=== PATIENT | female | born 1950 | race Caucasian/White ===

== ENCOUNTER 2016-12-19 08:16 | Inpatient (IN) | payer MEDICARE, OTHER ==
--- NOTE | 2016-12-11 20:01 | HP ---
HISTORY AND PHYSICAL: DATE OF ADMISSION/SURGERY: 12/19/16 DATE OF OFFICE VISIT: 12/11/16 PROVIDER: Dr. Alessia Sutton. (dictated by Dylan Leyva NP) CHIEF COMPLAINT: Preop for right total knee arthroplasty. HISTORY OF PRESENT ILLNESS: Ms. Henriquez is a 66-year-old female who presents today for her H and P of the right knee. She states that the pain is a 3/10 right now, but the pain is constant throughout the day. She has had her left knee replaced and would like to pursue treatment of the right knee now. She states as the day goes on, it wears her down and it is starting to affect her quality of life. PAST MEDICAL HISTORY: 1. Primary osteoarthritis, bilateral knees. 2. Obstructive sleep apnea. 3. Hypertension. 4. Hypothyroidism. 5. Depression. 6. Eczema. 7. Psoriasis. 8. Asthma. 9. Rosacea. 10. Retinal pucker. PAST SURGICAL HISTORY: 1. Bilateral cataracts. 2. LASIK bilateral eyes. 3. Carpal tunnel and ulnar nerve. 4. Trigger finger. 5. Bony cyst removal. 6. Tonsillectomy. 7. Cardiac catheterization. MEDICATIONS: 1. Acetaminophen 500 mg 1 three times a day as needed for pain. 2. Naproxen 220 mg 1 to 2 twice a day as needed for pain. 3. Proventil HFA inhaler 90 mcg 2 puffs every 4 hours. 4. Mucinex 600 mg 1 or 2 every 12 hours. 5. Cutemol emollient skin cream twice a day as needed. 6. Tar shampoo 2 to 3 times a week. 7. Olux Foam 0.05% apply to the scalp 1 or 2 times a day. 8. Hydrocortisone valerate cream MCFP 0.2% 2 times a day. 9. Brimonidine tartrate ophthalmic solution 0.2%. 10. Bupropion hydrochloride 150 mg. 11. Hyzaar 100/25. 12. Felodipine extended release 5 mg. 13. Levothyroxine 100 mcg. 14. Clindamycin 300 mg. 15. Pulmicort 200 mcg. 16. Calcium plus vitamin D 750/500. 17. Vitamin D 1999. 18. Nature Made Triple Boyd 3-6-9. 19. Nature Made Multi for Her with iron and calcium. 20. Glucosamine and chondroitin. ALLERGIES: PENICILLIN, ADHESIVES, and THIOMERSAL. FAMILY HISTORY: The patient has no family history to speak of. SOCIAL HISTORY: The patient denies history of smoking or illicit drug use. The patient admits to drinking occasionally. REVIEW OF SYSTEMS: General: The patient denies any fevers, chills, or night sweats. No known anesthesia problems. HEENT: The patient denies any lightheadedness, headaches, or syncopal episodes. Cardio: The patient denies any chest pain, heart palpitations, or edema. Pulmonary: The patient denies any shortness of breath with exertion, chronic cough, or COPD. GI: The patient denies any nausea, vomiting, diarrhea, or constipation. : The patient denies any nocturia, urinary frequency, or urinary urgency. MSK: The patient admits to right knee pain. The patient denies any left knee pain or chronic intermittent back pain. Neuro: The patient denies any paresthesias, numbness, seizure, stroke, or epilepsy. She admits to depression . Integument: The patient denies abrasions, lesions, rashes, lumps, or open sores. Endocrine: The patient denies diabetes or thyroid issue. Hematology: The patient denies any easy bruising, anemia, excessive bleeding, or DVT. PHYSICAL EXAMINATION GENERAL: The patient is awake, alert, and oriented, and appears in no acute distress with an appropriate mood and affect. HEENT: Normocephalic, atraumatic. Hearing and vision are grossly intact. PULMONARY: Lungs are clear to auscultation bilaterally with no wheezes, rales, or rhonchi. CARDIO: Regular rate and rhythm. Normal S1 and S2. No appreciable S3, S4. No murmurs, rubs, or gallops. MUSCULOSKELETAL: Right lower extremity, the patient is able to extend to 0 and flex to 110. The patient has negative Apley's, negative varus and valgus stress test. Negative Austin's. The patient has 5/5 dorsiflexion and plantar flexion strength. The patient has sensation to light touch grossly intact distally and the patient has 2+ dorsalis pedis and posterior tibial. IMPRESSION: Preop for right total knee arthroplasty. PLAN: The patient is to return in 10 to 14 days postoperatively for suture removal and followup. A prescription for Percocet 5/325 has been sent to her pharmacy for use of postoperative pain management. A script for Coumadin has been sent for postop DVT prophylaxis and Colace for postop constipation. The risks and benefits of the surgery were discussed with the patient today and the patient was amenable to these and signed the consent. KATARINA HITCHCOCK [id number]/[facility] #: [id number] CELESTINE
[~2016-12-19 08:16] MED LIST: Acetaminophen IV 1GM/100ML * 100 ML IVPB ONE; Buffered Lidocaine 1% SYRIN* 3 ML/SYR SYRINGE INTRADERM ONE; Famotidine IV* 10 MG/ML 2 ML (20 mg) IV ONE; Gabapentin CAP(*) 300 MG PO ONE; Levalbuterol 0.63MG/3ML NEB INH ONE; Metoclopramide TAB* 10 MG PO ONE; celeCOXIB CAP* 200 MG PO ONE
[2016-12-19] MEDS ORDERED: Famotidine IV* 10 MG/ML 2 ML (20 mg) ONE (08:43)
[2016-12-19] MEDS ORDERED: celeCOXIB CAP* 100 MG ONE (08:43)
[2016-12-19] MEDS ORDERED: Metoclopramide TAB* 10 MG ONE (08:43)
[2016-12-19] MEDS ORDERED: Gabapentin CAP(*) 300 MG ONE (08:43)
[2016-12-19] MEDS ORDERED: Levalbuterol 1.25MG/0.5ML NEB ONE (08:44)
[2016-12-19] MEDS ORDERED: Buffered Lidocaine 1% SYRIN* 3 ML/SYR SYRINGE ONE (08:44)
[2016-12-19] MEDS ORDERED: Clindamycin 900 MG IVPREMIX(* 900 MG/50 ML SDV IV ONE (08:44)
[2016-12-19] MEDS ORDERED: Acetaminophen IV 1GM/100ML * 100 ML ONE (08:48)
[2016-12-19] MEDS ORDERED: Dexamethasone IV* 4 MG/ML 1 ML (4 MG) ONE (09:33)
[2016-12-19] MEDS ORDERED: Propofol* 10 MG/ML 20 ML BTL IV PUSH ONE (09:33)
[2016-12-19] MEDS ORDERED: Morphine PF AMP (0.5MG/ML)* 5 MG/10 ML AMP ONE (09:33)
[2016-12-19] MEDS ORDERED: KETAMINE HCL* 50 MG/ML 10 ML VIAL ONE (09:33)
[2016-12-19] MEDS ORDERED: Midazolam* 1 MG/ML 5 ML VIAL (5 MG) ONE (09:33)
[2016-12-19] MEDS ORDERED: Ondansetron INJ* 2 MG/ML VIAL ONE (09:33)
[2016-12-19] MEDS ORDERED: Lidocaine 2% MPF* 2 ML VIAL ONE (09:33)
[2016-12-19] MEDS ORDERED: fentaNYL* 50 MCG/ML 2 ML VIAL (100 MCG VIAL) ONE (09:33)
[2016-12-19] MEDS ORDERED: Bupivacaine 0.5% SDV PF* 30 ML VIAL ONE (10:29)
[2016-12-19] MEDS ORDERED: EPHEDrine (Pressors)* 50 MG/ML VIAL ONE (11:27)
[2016-12-19] MEDS ORDERED: Propofol* 500 MG/50 ML BTL ONE (11:34)
[2016-12-19] MEDS ORDERED: Ondansetron INJ* 2 MG/ML VIAL IV PRN ×3 (12:48→14:04)
[2016-12-19] MEDS ORDERED: fentaNYL* 50 MCG/ML 2 ML VIAL (100 MCG VIAL) IV PRN (12:48)
[2016-12-19] MEDS ORDERED: Naloxone* 0.4 MG/ML 1 ML VIAL IV PRN (12:49)
[2016-12-19] MEDS ORDERED: diPHENhydraMINE IV* 50 MG/ML 1 ml VIAL (BENADRYL) IV PRN ×2 (12:49→14:04)
[2016-12-19] MEDS ORDERED: oxyCODONE/Acetamin 5/325 MG* TAB PO PRN ×3 (12:49→14:04)
[2016-12-19] MEDS ORDERED: EPHEDrine (Pressors)* 50 MG/ML VIAL IV PUSH PRN (12:53)
[2016-12-19] MEDS ORDERED: Lactated Ringers 500 ml BAG* 500 ML IV PRN (12:53)
[2016-12-19] MEDS ORDERED: Ropivacaine* 300 MG in NS 0.9% 250 ML* 240 ML EPIDURAL SCH (13:00)
[2016-12-19] MEDS ORDERED: oxyCODONE TAB* 5 MG TAB PO PRN (14:04)
[2016-12-19] MEDS ORDERED: Morphine INJ* 10 MG/ML 1 ML SYRINGE IV PRN (14:04)
[2016-12-19] MEDS ORDERED: Acetaminophen TAB* 325 MG PO PRN (14:04)
[2016-12-19] MEDS ORDERED: Polyethylene Glycol 3350* 17 GM PACKET PO PRN (14:04)
[2016-12-19] MEDS ORDERED: Ondansetron TAB* 4 MG PO PRN (14:04)
[2016-12-19] MEDS ORDERED: LACTULOSE* 30 ML UDC PO PRN (14:04)
[2016-12-19] MEDS ORDERED: Bisacodyl SUPP* 10 MG SUPP PR PRN (14:04)
[2016-12-19] MEDS ORDERED: Albuterol HFA INHALER* 8 gm MDI INH PRN (14:09)
--- NOTE | 2016-12-19 16:07 | RAD ---
Indication: Postop RIGHT total knee replacement. Comparison: July 01, 2016 radiographs. Technique: Portable AP and cross table lateral views RIGHT knee. Report: Status post total knee replacement. Anterior surgical drain in place in the suprapatellar recess. Post-op fluid and gas is seen in the joint space and anterior subcutaneous tissues. Alignment is anatomic. No periprosthetic fracture evident. Multiple chronic appearing posterior loose bodies are likely within popliteal cyst and popliteus tendon sheath. IMPRESSION: Normal post-op appearance following total knee replacement.
[2016-12-19] MEDS ORDERED: Warfarin TAB(*) 6 MG PO ONE (17:00)
[2016-12-19] MEDS: Clindamycin 600 MG IVPREMIX(* 600 MG/50 ML SDV IV SCH (19:33)
[2016-12-19] MEDS: buPROPion SR TAB.SR* 150 MG PO SCH (21:22)
[2016-12-19] MEDS: Magnesium Hydroxide LIQ* 30 ML UDC PO SCH (21:22)
[2016-12-19] MEDS: Docusate CAP* 100 MG PO SCH (21:22)
[2016-12-19] MEDS: Mometasone 220 MCG MDI INH SCH (21:25)
--- NOTE | 2016-12-19 23:35 | OP ---
DATE OF OPERATION: 12/19/16 - ROOM #348 DATE OF : 46 ATTENDING SURGEON: Alessia Sutton MD BUCKLE WIRE INSERTER: KATARINA Barone ANESTHESIOLOGIST: Dr. Betts. ANESTHESIA: Spinal. PRE-OP DIAGNOSIS: Severe end-stage degeneration of the right knee joint. POST-OP DIAGNOSIS: Severe end-stage degeneration of the right knee joint. OPERATIVE PROCEDURE: Right total knee arthroplasty. TOURNIQUET TIME: 53 minutes. EBL: 200 cc. COMPLICATIONS: None. SPECIMEN: Bone and cartilage from the right knee joint sent to pathology. HARDWARE: This is a [employer] total knee hardware cemented with 2 packages of Simplex bone cement. For the femur, a size 5 right narrow Oxinium femoral component. For the tibia, a size 4 tibial base plate, right side. For the patella, a 32 mm, 7.5 thickness, 3-peg all-poly patella and for the insert, a 9-mm posterior stabilized articular insert. BRIEF HISTORY: Ms. Henriquez is a 66-year-old female with years of increasingly severe right knee pain. She failed conservative treatment with anti- inflammatories, pain medication, intra-articular injection, physical therapy, and brace wear. Radiographs confirmed end-stage [id number] contact in the medial compartment and severe degenerative changes. The patient elected to have right total knee arthroplasty due to continued pain and decreased quality of life. Informed consent was obtained from the patient. She understood the risks of surgery included, but were not limited to bleeding, infection, damage to nearby structures, continued pain, need for further surgery, intraoperative fracture, nerve palsy, hardware failure or loosening, stroke, heart attack, blood clot, and . She wished to proceed. INTRAOPERATIVE FINDINGS: Intraoperatively, the patient was noted to have full thickness degeneration of the cartilage in the knee joint and patellofemoral compartments. 10 degrees varus deformity preoperatively. She was noted to have significant osteopenia. DESCRIPTION OF PROCEDURE: Ms. Henriquez was identified in the preanesthesia unit. Her right lower extremity was marked as the correct operative side. Informed consent was signed and placed in the chart. The patient was taken to the operating room and placed under spinal anesthesia. A Michel catheter was placed. Tourniquet was placed on the right side. Right lower extremity was prepped and draped in the usual sterile fashion. Preop time-out was made to correctly identify the patient's side and site. Appropriate perioperative antibiotics were given within 1 hour of incision. Tourniquet was inflated until a tourniquet time for this procedure was 53 minutes. A 12-cm midline incision was made with a 10 blade and carried down to the extensor mechanism. A new 10 blade was used to make a standard medial parapatellar arthrotomy. The patella was subluxed laterally. Electrocautery was used to subperiosteally elevate the soft tissue off of the superomedial tibia to the mid sagittal plane. The knee was flexed up. The anterior horn of the lateral meniscus and ACL were sharply released. Drill was used to enter the distal femur. Intramedullary distal femoral cutting guide was pinned into proper position. An oscillating saw was used to make the distal femoral bone cuts. External rotation guide was pinned on to the distal femur and the femur was sized to a size 5. Size 5 multi-cutting jig was pinned onto the distal femur and the oscillating saw was used to make the appropriate 4 chamfer cuts. The multi-cutting jig was removed. All bony fragments were carefully removed. The PCL was completely released. Tibia was subluxed anteriorly. Extramedullary tibial cutting guide was pinned on the proximal tibia. The oscillating saw was used to make the appropriate proximal tibial cut perpendicular to the mechanical axis of the tibia. The bone was carefully removed. Several large loose bodies were removed from the suprapatellar pouch and posterior capsule at this point. The knee was brought out into full extension. Spacer block had good fit with full extension. There was medial and lateral ligamentous balancing. Flexion and extension gaps were well balanced. The knee was then flexed up. Lamina digital imaging technician was placed both medially and laterally. Electrocautery was used to remove any remaining meniscus. A curved osteotome and curette was used to remove any posterior osteophytes from the posterior femoral condyle. Size 5 right narrow femoral trial was impacted onto the distal femur. This had excellent fit and stability. The box for the posterior stabilized implant was prepared using a reamer and box cut osteotome. A trial size 4 tibial tray and 9 -mm insert trial were chosen. These were put into position and the knee was taken through range of motion. Knee had full extension and 130 degrees of flexion. There was satisfactory patellofemoral tracking. The patella was everted. Patellar thickness was 22 mm at the greatest point. 7 -mm of patellar bone and cartilage was carefully removed with an oscillating saw. The patella was sized to a size 32. A 7.5 thickness was chosen to match the amount of bone removed. A 32 patellar trial was chosen and placed after the 3 peg holes were drilled through the size 32 guide. The knee was taken through range of motion and patellofemoral tracking was satisfactory. All trials were carefully removed. The tibia was subluxed anteriorly and sized to a size 4. Proximal tibia was prepared using a keel punch. All bony cut surfaces were copiously irrigated with sterile saline and dried. Final implants were cemented into placed starting with tibia followed by the femur and last the patella. A 9-mm insert trial was chosen and locked on the tibial tray while the knee was brought out into full extension and the cement was allowed to fully cure. Tourniquet was then turned down at 53 minutes. Once the cement was fully cured, the insert trial was removed. Capsule was checked for any bleeding or excess cement. A 9-mm posterior stabilized insert trial was chosen as the final implant. This was opened and locked into position on the tibial tray. Stability of the insert on the tibial tray was checked and rechecked and noted to be stable. Final range of motion was full extension to 130 degrees of flexion with good patellofemoral tracking. The knee was copiously irrigated with sterile saline. The extensor mechanism was closed using interrupted #1 Vicryls over a median Hemovac drain. The rest of the incision was closed in a layered fashion using 0 and 2-0 Vicryls. Skin was closed using running 3-0 nylon suture. Sterile Xeroform, 4x4s, and Webril were used to cover the incision. Gregory wrap and cold pack were placed over this. The patient's anesthesia was reversed without difficulty. She was taken to the PACU in stable condition. Intended weightbearing will be weightbearing as tolerated. Intended DVT prophylaxis will be Coumadin with a Lovenox bridge. [id number]/[facility] #: [id number] CELESTINE
[2016-12-20] MEDS: Clindamycin 600 MG IVPREMIX(* 600 MG/50 ML SDV IV SCH ×2 (03:24→12:41)
[2016-12-20 07:13] LABS: Hematocrit 30 % (35-47)
[2016-12-20 07:23] LABS: BUN/Creatinine Ratio 20.3 (8-20); EGFR African American 108.8 (>60); EGFR Non-African American 84.6 (>60); Potassium 4.9 mmol/L (3.5-5.0)
--- NOTE | 2016-12-20 07:51 | PN ---
Progress Note - Progress Note SOAP: Subjective: Pt. reports pain is controlled. Objective: RLE - drain removed, tip intact with 250 cc ss drainage. distally +df/pf, full sens lt, 2+ dp pulse. Laboratory Results - last 24 hr 12/20/16 12/20/16 12/20/16 06:54 06:54 06:54 Hgb 10.0 L Hct 30 L INR (Anticoag Therapy) 0.97 Sodium 138 Potassium 4.9 Chloride 102 Carbon Dioxide 33 H Anion Gap 3 BUN 14 Creatinine 0.69 Est GFR ( Amer) 108.8 Est GFR (Non-Af Amer) 84.6 BUN/Creatinine Ratio 20.3 H Glucose 108 H Calcium 9.0 Vital Signs: Temp Pulse Resp BP Pulse Ox 97.6 F 67 16 106/50 97 12/20/16 03:18 12/20/16 03:18 12/20/16 04:58 12/20/16 03:50 12/20/16 03:32 Assessment: 66 yo F pod 1 s/p RTKA Plan: wbat - pt/ot 8 mg coumadin, lovenox bridge xrays satisfactory 8mg coumadin tonight, lovenox bridge.
[2016-12-20] MEDS: Vitamin THERAPEUTIC TAB PO SCH (09:36)
[2016-12-20] MEDS: Losartan TAB* 25 MG PO SCH (09:36)
[2016-12-20] MEDS: oxyCODONE/Acetamin 5/325 MG* TAB PO PRN ×4 (09:37→21:31)
[2016-12-20] MEDS: amLODIPine TAB* 5 MG PO SCH (09:37)
[2016-12-20] MEDS: Magnesium Hydroxide LIQ* 30 ML UDC PO SCH ×2 (09:37→21:31)
[2016-12-20] MEDS: buPROPion SR TAB.SR* 150 MG PO SCH ×2 (09:37→21:30)
[2016-12-20] MEDS: Levothyroxine TAB* 100 MCG TAB PO SCH (09:37)
[2016-12-20] MEDS: Docusate CAP* 100 MG PO SCH ×2 (09:47→21:31)
[2016-12-20] MEDS: Hydrochlorothiazide TAB* 25 MG PO SCH (09:47)
[2016-12-20] MEDS: Enoxaparin(*) 30 MG/0.3 ML SYR SUBCUT SCH (15:50)
[2016-12-20] MEDS ORDERED: Warfarin TAB(*) 4 MG PO ONE (17:00)
[2016-12-20] MEDS: Mometasone 220 MCG MDI INH SCH (17:56)
[2016-12-21] MEDS: oxyCODONE/Acetamin 5/325 MG* TAB PO PRN ×5 (01:35→21:42)
[2016-12-21 07:09] LABS: Hematocrit 30 % (35-47); Hemoglobin 9.9 g/dl (12.0-16.0)
[2016-12-21] MEDS: Levothyroxine TAB* 100 MCG TAB PO SCH (08:25)
[2016-12-21] MEDS: Hydrochlorothiazide TAB* 25 MG PO SCH (08:25)
[2016-12-21] MEDS: amLODIPine TAB* 5 MG PO SCH (08:25)
[2016-12-21] MEDS: buPROPion SR TAB.SR* 150 MG PO SCH ×2 (08:25→19:59)
[2016-12-21] MEDS: Losartan TAB* 25 MG PO SCH (08:25)
[2016-12-21] MEDS: Vitamin THERAPEUTIC TAB PO SCH (08:25)
[2016-12-21] MEDS: Docusate CAP* 100 MG PO SCH ×2 (08:25→19:27)
[2016-12-21] MEDS: Magnesium Hydroxide LIQ* 30 ML UDC PO SCH ×2 (08:44→19:27)
--- NOTE | 2016-12-21 09:31 | PN ---
Progress Note - Progress Note SOAP: Subjective: Pt. c/o being very tired today, does not feel ready to go home. Pain is controlled. Objective: RLE - dressing changed, inc c/d/i. distally nvi. min swelling. Vital Signs: Temp Pulse Resp BP Pulse Ox 99.0 F 89 18 148/75 95 12/21/16 07:35 12/21/16 08:21 12/21/16 08:23 12/21/16 07:35 12/21/16 08:21 Laboratory Results - last 24 hr 12/21/16 12/21/16 06:43 06:43 Hgb 9.9 L Hct 30 L INR (Anticoag Therapy) 1.17 H Assessment: 66 yo F pod 2 s/p RTKA Plan: doing well with pt cont pt/ot - wbat rle 8 mg coumadin tonight, with lovenox bridge bowel regimen. plan d/c to home tomorrow.
[2016-12-21] MEDS: Enoxaparin(*) 30 MG/0.3 ML SYR SUBCUT SCH (15:31)
[2016-12-21] MEDS ORDERED: Warfarin TAB(*) 6 MG PO SCH (17:00)
[2016-12-21] MEDS ORDERED: Warfarin TAB(*) 4 MG PO SCH (17:00)
[2016-12-21] MEDS ORDERED: Mometasone 220 MCG MDI INH SCH (18:00)
[2016-12-22] MEDS: oxyCODONE/Acetamin 5/325 MG* TAB PO PRN ×3 (02:58→13:42)
[2016-12-22 06:44] LABS: Hematocrit 31 % (35-47); Hemoglobin 10.3 g/dl (12.0-16.0)
[2016-12-22] MEDS: buPROPion SR TAB.SR* 150 MG PO SCH (09:43)
[2016-12-22] MEDS: Levothyroxine TAB* 100 MCG TAB PO SCH (09:43)
[2016-12-22] MEDS: Hydrochlorothiazide TAB* 25 MG PO SCH (09:43)
[2016-12-22] MEDS: Docusate CAP* 100 MG PO SCH (09:43)
[2016-12-22] MEDS: amLODIPine TAB* 5 MG PO SCH (09:43)
[2016-12-22] MEDS: Vitamin THERAPEUTIC TAB PO SCH (09:43)
[2016-12-22] MEDS: Losartan TAB* 25 MG PO SCH (09:44)
[2016-12-22] MEDS: Magnesium Hydroxide LIQ* 30 ML UDC PO SCH (09:44)
--- NOTE | 2016-12-22 10:19 | PN ---
Progress Note - Progress Note SOAP: Subjective: Pt states she is doing well. Her pain is controlled. She is doing well with PT and is ready to go home. She has had a BM. She denies CP,SOB, fever or chills. Objective: PE- 66 y/o WDWN F in NAD sitting comfortably in chair RLE- dressing changed, incision c/d/i w/o evidence of infection, calf soft nontender, +PF/DF of ankle, NVI Vital Signs Temp Pulse Resp BP Pulse Ox 99.0 F 76 18 146/68 93 12/22/16 07:34 12/22/16 07:34 12/22/16 09:25 12/22/16 07:34 12/22/16 07:49 Laboratory Results - last 24 hr 12/22/16 12/22/16 06:29 06:29 Hgb 10.3 L Hct 31 L INR (Anticoag Therapy) 1.52 H Assessment: POD 3 S/P Right TKA Plan: DC to home with VNS today WBAT RLE- cont PT Cont coumadin for DVT prophyaxis Cont percocet and colace F/U in office in 10-14 days
[2016-12-22 12:09] VITALS: BP 137/62
[2016-12-22] MEDS: Enoxaparin(*) 30 MG/0.3 ML SYR SUBCUT SCH (14:32)
--- NOTE | 2016-12-23 00:22 | DS ---
DISCHARGE SUMMARY: DATE OF ADMISSION: 12/19/16 DATE OF DISCHARGE: 12/22/16 PROVIDER: Alessia Sutton MD. ADMITTING DIAGNOSIS: Severe right knee osteoarthritis. PROCEDURE: Right total knee arthroplasty. SECONDARY DIAGNOSES: 1. Primary osteoarthritis, bilateral knees. 2. Obstructive sleep apnea. 3. Hypertension. 4. Hypothyroidism. 5. Depression. 6. Eczema. 7. Psoriasis. 8. Asthma. 9. Rosacea. 10. Retinal pucker. CONSULTATIONS: Physical Therapy and Occupational Therapy. HISTORY OF PRESENT ILLNESS: Ms. Henriquez is a 66-year-old female who presents to the clinic for ongoing right knee pain due to severe endstage osteoarthritis. She has failed conservative measures and therefore agreed to undergo a right total knee arthroplasty with Dr. Sutton on 12/19/16. HOSPITAL COURSE: Ms. Henriquez was admitted to [facility] on . She underwent a right total knee arthroplasty. Postoperatively, she recovered on the short stay surgical unit. On postop day 1, her Michel was removed and she was able to urinate on her own. She was advanced to a regular diet without difficulty. Her pain was controlled with p.o. Percocet and she was restarted on her home medications. Her labs and vitals remained stable. She was able to bear weight as tolerated on the right lower extremity. She advanced appropriately with physical therapy and occupational therapy. Her DVT prophylaxis was managed with Lovenox and Coumadin until she reached a therapeutic INR. On postop day 3, she was orthopedically and medically stable for discharge to home with VNS services. PHYSICAL EXAMINATION: General: A 66-year-old well-developed, well-nourished female in no acute distress. Alert and oriented x3. Right lower Extremity: Surgical incision is healing well. The sutures are intact. No erythema, drainage or signs of infection. Dry sterile dressing was applied. Active ankle dorsiflexion and plantar flexion, +2 dorsalis pedis pulse. Sensation to light touch intact. LABORATORY DATA: On the day of discharge, hemoglobin 10.3, hematocrit 31, INR 1.52. DISCHARGE CONDITION: Stable. DISCHARGE MEDICATIONS: New medications on discharge to include: 1. Colace 100 mg capsules up to 3 times a day as needed for constipation. 2. Warfarin 2 mg tabs by mouth daily as directed. 3. Percocet 5/325 mg 1 to 2 tabs every 4 to 6 hours as needed for pain. Home medications continued on discharge to include: 1. Vitamin D 1000 unit capsule, 1 capsule by mouth daily. 2. Mucinex 600 mg 1 by mouth every 4 hours as needed. 3. Multivitamin Women's 50+ one tab by mouth daily. 4. MegaRed, Gardiner-3, krill oil 500 mg 1 tab by mouth daily. 5. Calcium plus vitamin D plus vitamin K 750-500-40 mg 1 tab by mouth twice a day. 6. Pulmicort Flexhaler 180 mcg/act 2 puffs inhaled twice a day. 7. Albuterol HFA inhaler 2 puffs inhaled every 4 hours as needed. 8. Losartan/HCTZ 100/25 mg 1 by mouth daily. 9. Levothyroxine 100 mcg by mouth daily. 10. Wellbutrin 150 mg by mouth twice a day. 11. Acetaminophen 225 mg 2 by mouth every 4 hours. 12. Naproxen sodium 220 mg 1 to 2 tabs by mouth daily as needed. 13. Felodipine 5 mg 1 by mouth every morning. DISCHARGE INSTRUCTIONS: Ms. Henriquez is a 66-year-old female, postop day 3 status post left total knee arthroplasty, which was uncomplicated. She is orthopedically and medically stable for discharge to home with VNS services. Her labs and vitals are stable. She will restart her home medications. She will take 8 mg of Coumadin tonight and we will recheck an INR on Friday. She will have INR draws on Mondays and with visiting nursing services. She will remain weightbearing as tolerated on the right lower extremity. She will do PT at home twice a week. She will take Percocet for pain control and Colace up to 3 times a day for constipation. She will follow up with Dr. Sutton in 10 to 14 days for an incision check and suture removal. She may shower on postop day 4, but is not to submerge the wound in water. She is instructed to go to the ER immediately if she develops chest pain, shortness of breath, fever greater than 101.5, or calf pain and tenderness. The patient understands to call the office with any questions or [place] [id number]/[facility] #: [id number] CELESTINE
== END 2016-12-22 17:56 | disposition home health service (06) | DRG 470 ==
LOC: AA 08:16 → SSU 16:14
PROVIDERS: ADMIT Orthopaedic Surgery Adult Reconstructive Orthopaedic Surgery; ATTEND Orthopaedic Surgery Adult Reconstructive Orthopaedic Surgery
PROC: 0SRC0J9 Replacement of Right Knee Joint with Synthetic Substitute, Cemented, Open Approach (ICD-10-PCS; principal; 2016-12-19 10:00)
DX: M17.11 Unilateral primary osteoarthritis, right knee (principal); I10 Essential (primary) hypertension; G47.33 Obstructive sleep apnea (adult) (pediatric); E03.9 Hypothyroidism, unspecified; F32.9 Major depressive disorder, single episode, unspecified; L40.9 Psoriasis, unspecified; J45.909 Unspecified asthma, uncomplicated; H35.379 Puckering of macula, unspecified eye; Z96.652 Presence of left artificial knee joint; M85.861 Other specified disorders of bone density and structure, right lower leg; M21.161 Varus deformity, not elsewhere classified, right knee; L30.9 Dermatitis, unspecified; L71.9 Rosacea, unspecified; Z98.42 Cataract extraction status, left eye; Z98.41 Cataract extraction status, right eye; Z88.0 Allergy status to penicillin; Z88.8 Allergy status to other drugs, medicaments and biological substances; Z91.048 Other nonmedicinal substance allergy status; Z79.01 Long term (current) use of anticoagulants
CPT/HCPCS: 36415; 62327; 80048; 85014; 85018; 85610; 88305; 88311; 94760; A9270-GY; C1776; J1100; J1650; J2250; J2405; J2704; J2795; J3010

== ENCOUNTER 2020-02-04 18:37 | Emergency (ER) | payer MEDICARE ==
--- OUTSIDE RECORDS SUMMARY | 2020-02-04 18:43 | XMS REPORT | Continuity of Care Document ---
:1950 External Reference #:[id number] Author Name DARLINE Parks Address [address] [place] [address] Problems Active Problems Provider Date Mild persistent asthma Trish Allen M.D. Onset: 01/17/2016 Allergic asthma without status asthmaticus Trish Allen M.D. Onset: 2013 Allergic rhinitis Trish Allen M.D. Onset: 08/10/2014 Allergic rhinitis due to pollen Trish Allen M.D. Onset: 08/10/2014 Social History Type Date Description Comments Sex Unknown ETOH Use Occasionally consumes wine Tobacco Use Start: Unknown Patient has never smoked Recreational Drug Use Denies Drug Use Allergies, Adverse Reactions, Alerts Active Allergies Reaction Severity Comments Date Penicillin Urticaria Flurosene Eye gtts eye irritation Thimerosal Urticaria Severe 01/17/2016 Medications Active Medications SIG Qnty Indications Ordering Date Provider Ventolin HFA 2 every 4 hours 36gm J45.30 Dayana Sauceda, 07/19/2019 108(90Base) as needed [employer] mcg/Act Aerosol Pulmicort Flexhaler use 2 puffs twice 3units Dayana Sauceda, 06/26/2016 daily [employer] 180mcg/Act Aerosol Ipratropium use one vial via 1box J45.30 Dayana Sauceda, 01/17/2016 [place]/Albuterol nebulizer every [employer] Sulfate 4-6 hours. as 0.5-2.5(3)mg/3ML needed for cough, Solution wheeze or shortness of breath Albuterol Sulfate use in nebulizer 1box Dayana Sauceda, 09/02/2012 every 4 hours as [employer] (2.5mg/3ML) 0.083% needed cough or Nebulizer wheezing Levoxyl Unknown 100mcg Tablets Losartan 1 tab daily. Unknown Potassium/Hydrochlorot hiazide 100-25mg Tablets Bupropion HCL ER 1 tab twice Unknown 150mg daily. Tablets ER 12HR Vitamin D-3 1 tab daily. Unknown 3000Unit Capsules Calcium + D3 Unknown [id number] Tablets Multi Complete 1 by mouth every Unknown Capsules day Acetaminophen 2 tabs by mouth Unknown 500mg daily as needed. Tablets Mucinex 2 by mouth every Unknown 600mg Tablets ER 12 hours 12HR Triamcinolone Alistair Aguilar, Acetonide [employer] 0.1% Cream Lotemax Apply To Both Unknown 0.5% Ointment Eyelids Two Times A Day as Needed For No More Than 4 Weeks Amlodipine Besylate once daily Unknown 10mg Tablets Glucosamine daily Unknown Chondroitin 1500 Complex Maximum Strength 1500Com Capsules Medications Administered in Office Medication SIG Qnty Indications Ordering Provider Date Gabe Maria M.D. 10/11/2009 Injection Injection Ferdinand Maria M.D. 09/06/2009 Injection Injection Ferdinand Maria M.D. 08/23/2009 Injection Injection Ferdinand Maria M.D. 07/14/2009 Injection Injection Ferdinand Maria M.D. 06/26/2009 Injection Injection Ferdinand Maria M.D. 05/31/2009 Injection Injection Ferdinand Maria M.D. 05/01/2009 Injection Injection Ferdinand Maria M.D. 04/03/2009 Injection Injection Ferdinand Maria M.D. 03/20/2009 Injection Injection Ferdinand Maria M.D. 03/06/2009 Injection Gabe Maria M.D. 02/20/2009 Injection Injection Ferdinand Maria M.D. 01/02/2009 Injection Injection Ferdinand Maria M.D. 12/05/2008 Injection Injection Ferdinand Crow, Michaela.DBlaise 11/07/2008 Injection Injection Ferdinand Crow, M.DBlaise 10/10/2008 Injection Injection Ferdinand Crow, M.DBlaise 09/12/2008 Injection Injection Ferdinand Crow, M.DBlaise 08/29/2008 Injection Injection Ferdinand Crow, M.DBlaise 08/03/2008 Injection Injection Ferdinand Crow, M.DBlaise 07/18/2008 Injection Injection Ferdinand Crow, M.DBlaise 07/04/2008 Injection Injection Ferdinand Crow, M.DBlaise 06/06/2008 Injection Injection Ferdinand Crow, M.DBlaise 05/23/2008 Injection Injection Ferdinand Crow, M.DBlaise 04/27/2008 Injection Injection Ferdinand Crow, Michaela.DBlaise 04/11/2008 Injection Injection Ferdinand Crow, KurtisDBlaise 03/28/2008 Injection Injection Ferdinand Crow, KurtisDBlaise 03/14/2008 Injection Injection Ferdinand Crow, Michaela.DBlaise 02/29/2008 Injection Injection Ferdinand Crow, M.DBlaise 02/15/2008 Injection Injection Ferdinand Crow, M.DBlaise 01/18/2008 Injection Injection Ferdinand Crow, M.DBlaise 12/21/2007 Injection Injection Ferdinand Crow, KurtisDBlaise 11/16/2007 Injection Injection Ferdinand Crow, KurtisDBlaise 10/19/2007 Injection Injection Ferdinand Crow, KurtisDBlaise 09/28/2007 Injection Injection Ferdinand Crow, M.DBlaise 08/26/2007 Injection Injection Ferdinand Crow, M.DBlaise 08/10/2007 Injection Injection Ferdinand Crow, M.DBlaise 07/27/2007 Injection Injection Ferdinand Crow, M.DBlaise 07/13/2007 Injection Injection Ferdinand Crow, M.DBlaise 06/29/2007 Injection Injection Ferdinand Crow, M.DBlaise 06/08/2007 Injection Injection Ferdinand Crow, M.DBlaise 05/25/2007 Injection Injection Ferdinand Crow, M.DBlaise 05/13/2007 Injection Injection Ferdinand Crow, M.DBlaise 04/24/2007 Injection Injection Ferdinand Crow, MFrankie 04/13/2007 Injection Injection Ferdinand Crow, M.DBlaise 03/30/2007 Injection Injection Ferdinand Crow, M.DBlaise 03/16/2007 Injection Injection Ferdinand Crow, M.DBlaise 03/02/2007 Injection Injection Ferdinand Crow, M.DBlaise 02/23/2007 Injection Injection Ferdinand Crow, M.DBlaise 02/16/2007 Injection Injection Ferdinand Crow, M.DBlaise 02/09/2007 Injection Injection Ferdinand Crow, M.DBlaise 02/02/2007 Injection Injection Ferdinand Crow, M.DBlaise 01/19/2007 Injection Injection Ferdinand Crow, M.DBlaise 01/09/2007 Injection Injection Ferdinand Crow, M.DBlaise 12/29/2006 Injection Injection Ferdinand Crow, M.DBlaise 12/22/2006 Injection Injection Ferdinand Crow, M.DBlaise 12/15/2006 Injection Injection Ferdinand Crow, M.DBlaise 12/08/2006 Injection Injection Ferdinand Crow, M.DBlaise 11/10/2006 Injection Injection Ferdinand Crow, M.DBlaise 11/03/2006 Injection Injection Ferdinand Crow, M.DBlaise 10/27/2006 Injection Injection Ferdinand Crow, M.DBlaise 10/20/2006 Injection Injection Ferdinand Crow, M.DBlaise 10/13/2006 Injection Injection Ferdinand Crow, M.DBlaise 10/06/2006 Injection Injection Ferdinand Crow, M.DBlaise 09/29/2006 Injection Injection Ferdinand Crow, M.DBlaise 09/22/2006 Injection Injection Ferdinand Crow, M.DBlaise 09/15/2006 Injection Injection Ferdinand Crow, M.DBlaise 09/12/2006 Injection Injection Ferdinand Crow, M.DBlaise 09/01/2006 Injection Injection Ferdinand Crow, M.DBlaise 08/25/2006 Injection Injection Ferdinand Crow, M.DBlaise 08/11/2006 Injection Injection Ferdinand Crow, M.DBlaise 08/08/2006 Injection Injection Ferdinand Crow, M.DBlaise 07/28/2006 Injection Injection Ferdinand Crow, M.DBlaise 07/09/2006 Injection Injection Ferdinand Maria M.D. 06/30/2006 Injection Injection Ferdinand Maria M.D. 06/16/2006 Injection Injection Ferdinand Maria M.D. 06/09/2006 Injection Injection Ferdinand Maria M.D. 05/26/2006 Injection Gabe Maria M.D. 05/12/2006 Injection Injection Ferdinand Maria M.D. 05/05/2006 Injection Injection Ferdinand Maria M.D. 04/21/2006 Injection Injection Ferdinand Maria M.D. 04/14/2006 Injection Injection Ferdinand Maria M.D. 03/31/2006 Injection Injection Ferdinand Maria M.D. 03/24/2006 Injection Immunizations CPT Code Status Date Vaccine Lot # 24617 Given 08/31/2015 Influenza Vaccine 57005 Given Unknown Pneumococcal Vaccine 89240 Given Unknown Influenza Vaccine 86057 Given Unknown Influenza Vaccine 90598 Given Unknown Influenza Vaccine 47203 Given Unknown Influenza Vaccine 35907 Given Unknown Influenza Vaccine 94312 Given Unknown Influenza Vaccine 3 Years Old + 39038 Given Unknown Influenza Vaccine 3 Years Old + Vital Signs Date Vital Result Comment 01/24/2020 9:02am Height 62 inches 5'2" Weight 183.00 lb Weight 83.009 kg Respiratory Rate 12 /min Heart Rate 88 /min O2 % BldC Oximetry 99 % BP Systolic 126 mmHg BP Diastolic 76 mmHg Asthma Control Test 25 Fractional Exhaled Nitric Oxide 13 BMI (Body Mass Index) 33.5 kg/m2 07/19/2019 1:59pm BP Systolic 168 mmHg manual BP Diastolic 90 mmHg manual Results Description No Information Available Procedures Date Code Description Status 01/24/2020 32025 Nitric Oxide Gas Determination Completed Medical Devices Description No Information Available Encounters Type Date Location Provider Dx Diagnosis Office Visit 01/24/2020 Heather Sauceda, J45.30 Mild persistent asthma, 9:00a [employer] uncomplicated J30.2 Other seasonal allergic rhinitis J30.1 Allergic rhinitis due to pollen J30.89 Other allergic rhinitis Assessments Date Code Description Provider 01/24/2020 J45.30 Mild persistent asthma, uncomplicated KODY Parks 01/24/2020 J30.2 Other seasonal allergic rhinitis DARLINE Parks 01/24/2020 J30.1 Allergic rhinitis due to pollen DARLINE Parks 01/24/2020 J30.89 Other allergic rhinitis DARLINE Parks Plan of Treatment Future Appointment(s):07/24/2020 9:00 am - DARLINE Parks at [facility] - KODY Parks-CJ45.30 Mild persistent asthma, ntkbunogfemylJ23.2 Other seasonal allergic pekaswkwW71.1 Allergic rhinitis due to ibmkbyU38.89 Other allergic rhinitisRecommendations:Continue all medications as prescribed.Refrain from wearing perfumes/scented colognes while visitingour office. Continue Pulmicort 2 puff daily and in the winter twice a day Rinse your mouth with water after using your inhaler to help prevent hoarseness, throat irritation, and infection in the mouth. Use the nebulizer with the albuterol/ipratropium once a day and the levalbuterol in the evening Ventolin 2 puffs every 4 hours as needed for cough, shortness of breath, wheezing, or chest congestion. Monitor Albuterol use. If using more than 2x/week, please call the office as your asthma medications may need to be adjusted. Functional Status Description No Information Available Mental Status Description No Information Available Referrals Description No Information Available
[2020-02-04 19:02] VITALS: BP 119/67
[2020-02-04 19:19] LABS: Influenza A Molecular POSITIVE (Negative)
--- NOTE | 2020-02-04 19:21 | UC ---
General HPI - HPI Summary HPI Summary: Here with daughter. Day three of cough, congestion, bodyaches, wheezing and increase in inhaler use. Sleeping a lot and trying to drink as much as she can. Urine output - 4-5 times today. Nauseated but no vomiting. Did dry heave the other day. Some diarrhea. Unknown if she has had a fever but chills. Shortness of breath. Is taking tylenol and mucinex. Taking her duoneb 2x/day and her albuterol 2x/day and her pulmicort 2x/day Did get a flu shot - History of Current Complaint Chief Complaint: UCRespiratory Stated Complaint: COUGH Time Seen by Provider: 02/04/20 18:58 Pain Intensity: 0 - Allergy/Home Medications Allergies/Adverse Reactions: Allergies Allergy/AdvReac Type Severity Reaction Status Date / Time Adhesive Tape Allergy Intermediate PEELS SKIN Verified 02/04/20 19:02 OFF WHEN REMOVED latex Allergy Intermediate Rash Verified 02/04/20 19:02 Penicillins Allergy Rash Verified 02/04/20 19:02 thimerosal Allergy large red Verified 02/04/20 19:02 welts Home Medications: Home Medications Cholecalciferol (Vitamin D3) [Vitamin D3] 1,000 units PO DAILY 09/14/13 [ History Confirmed 02/04/20] Albuterol HFA INHALER* [Ventolin HFA Inhaler*] 2 puff INH Q4H PRN 08/15/16 [ History Confirmed 02/04/20] Budesonide Flexhaler 180 (NF) [Pulmicort Flexhaler 180 mcg/act (NF)] 2 puff INH BID 08/15/16 [History Confirmed 02/04/20] Losartan/HCTZ 100/25 (NF) [Hyzaar 100/25 (NF)] 1 tab PO DAILY 08/15/16 [History Confirmed 02/04/20] buPROPion SR TAB* [Wellbutrin SR TAB*] 150 mg PO BID 08/15/16 [History Confirmed 02/04/20] Acetaminophen TAB* [Tylenol TAB*] 650 mg PO Q4H PRN #0 tab 08/18/16 [Rx Confirmed 02/04/20] Naproxen Sodium 1 - 2 tab PO DAILY PRN 12/11/16 [History Confirmed 02/04/20] Calcium Carb, Citrate/Vit D3 [Calcium+D3 Gradual Releas] 1 tab PO DAILY [History Confirmed 02/04/20] Levothyroxine TAB* [Synthroid TAB*] 100 mcg PO DAILY 07/14/19 [History Confirmed 02/04/20] Multivitamins/Minerals TAB* [Theragran/minerals TAB*] 1 tab PO DAILY 07/14/19 [ History Confirmed 02/04/20] Melatonin/Pyridoxine HCl (B6) [Melatonin 3 mg Tablet] 3 mg PO BEDTIME 07/16/19 [ History Confirmed 02/04/20] Triamcinolone 0.5% CREAM(NF) [Triamcinolone 0.5% CREAM*] 1 applic TOPICAL .1-2X/ DAY PRN 07/16/19 [History Confirmed 02/04/20] Metronidazole (TOPICAL)(NF) [Metrocream (NF)] 1 applic TOPICAL BID PRN 07/21/19 [History Confirmed 02/04/20] Acetaminophen/Diphenhydramine [Tylenol Pm Ex-Strength Caplet] 1 tab PO ONCE PRN 02/04/20 [History Confirmed 02/04/20] Albuterol/Ipratropium NEB.ALLIE* [Duoneb (Albuterol 2.5 MG/Ipratropium 0.5 MG)] 1 dose INH ONCE PRN 02/04/20 [History Confirmed 02/04/20] DOXYcycline CAP(*) [DOXYcycline 100MG CAP(*)] 100 mg PO BID #10 cap 02/04/20 [Rx ] Oseltamivir CAP* [Tamiflu CAP*] 75 mg PO BID #10 cap 02/04/20 [Rx] amLODIPine TAB* [Norvasc 5 mg TAB*] 10 mg PO DAILY 02/04/20 [History Confirmed 02/04/20] predniSONE 20 mg TAB [Deltasone 20 MG TAB*] 20 mg PO DAILY #11 tab 02/04/20 [Rx] PMH/Surg Hx/FS Hx/Imm Hx Previously Healthy: Yes Cardiovascular History: Hypertension Respiratory History: Asthma - Surgical History Surgical History: Yes Surgery Procedure, Year, and Place: AGE 15 TONSILLECTOMY, [facility]. 2000 BILATERAL TRIGGER THUMB RELEASE AND RELEASE LEFT MIDDLE FINGER, [facility]. EXCISION OF SPOT ON BACK, OFFICE. EXCISION OF LESION UNDER TONGUE, OFFICE. IMPACTED WISDOM TEETH AGE 17 AND AGE 32. Cataract Surgery both eyes 2011. 07/2015 VITRECTOMY-SCANNED IN OTHER OP REPORTS. 03/2012 LEFT ULNA NERVE RELEASE AT ELBOW AND WRIST, LEFT CARPAL TUNNEL RELEASE, [facility]. BILATERAL KNEE REPLACEMENT 2015-12/2016 - Social History Alcohol Use: Occasionally Substance Use Type: None Smoking Status (MU): Never Smoked Tobacco When Did the Patient Quit Smoking/Using Tobacco: EXPOSED TO SECOND HAND SMOKE MANY YEARS AGO - Immunization History Most Recent Influenza Vaccination: 2014 Most Recent Tetanus Shot: WITHIN LAST 10YEARS Most Recent Pneumonia Vaccination: WITHIN LAST 5 YEARS Review of Systems All Other Systems Reviewed And Are Negative: Yes Constitutional: Positive: Fever, Chills ENT: Positive: Sore Throat, Nasal Discharge Respiratory: Positive: Shortness Of Breath, Cough Physical Exam Triage Information Reviewed: Yes Appearance: Other: - mildly ill apppearing. no respiratory distress Vital Signs: Initial Vital Signs Temp 99 F 02/04/20 18:56 Pulse 72 02/04/20 18:56 Resp 18 02/04/20 18:56 BP 119/67 02/04/20 18:56 Pulse Ox 98 02/04/20 18:56 Eyes: Positive: Conjunctiva Clear ENT: Positive: Pharyngeal erythema, Nasal drainage, TMs normal Neck: Positive: Supple, Nontender Respiratory: Positive: Other: - b/l rhonchi and b/l expiratory wheezing Cardiovascular: Positive: RRR, No Murmur Abdomen Description: Positive: Soft Course/Dx - Course Course Of Treatment: This is a 69 yr old with PMhx of asthma who presents with flu like symptoms Flu A: positive CXR: ?RML/RLL PNA Asthma exacerbation No respiratory distress but mildly ill appearing Plan Recommend starting Tamiflu, doxycycline, and prednisone as prescribed Recommend using Albuterol inhaler every 4 hours while sick and then continue duoneb ever 6 hours as needed Continue to drink plenty of fluids, rest and tylenol as needed for pain/fevers If you symptoms are not improving over the next 24 hours, I recommend you are re -evaluated by your PCP, urgent care or the ER If you are feeling worse, shortness of breath or chest pain, go to the ER - Diagnoses Provider Diagnosis: Influenza A, Asthma attack, Pneumonia Discharge ED - Sign-Out/Discharge Documenting (check all that apply): Patient Departure All imaging exams completed and their final reports reviewed: No - Discharge Plan Condition: Fair Disposition: HOME Prescriptions: DOXYcycline CAP(*) [DOXYcycline 100MG CAP(*)] 100 mg PO BID #10 cap Oseltamivir CAP* [Tamiflu CAP*] 75 mg PO BID #10 cap predniSONE 20 mg TAB [Deltasone 20 MG TAB*] 20 mg PO DAILY #11 tab Patient Education Materials: Asthma (ED), Influenza (ED), Pneumonia (ED) Referrals: Jamison López MD [Primary Care Provider] - Additional Instructions: Recommend starting Tamiflu, doxycycline, and prednisone as prescribed Recommend using Albuterol inhaler every 4 hours while sick and then continue duoneb ever 6 hours as needed Continue to drink plenty of fluids, rest and tylenol as needed for pain/fevers If you symptoms are not improving over the next 24 hours, I recommend you are re -evaluated by your PCP, urgent care or the ER If you are feeling worse, shortness of breath or chest pain, go to the ER - Billing Disposition and Condition Condition: FAIR Disposition: Home
--- NOTE | 2020-02-05 12:50 | UC ---
- Progress Note Progress Note: Chest x ray: No acute illness. No pneumonia. Patient positive for influenza; on 5 days of doxycycline. No change in treatment. Minh Hicks MD Course/Dx - Diagnoses Provider Diagnoses: Influenza A, Asthma attack, Pneumonia Discharge ED - Sign-Out/Discharge Documenting (check all that apply): Post-Discharge Follow Up All imaging exams completed and their final reports reviewed: Yes - Discharge Plan Condition: Fair Disposition: HOME Prescriptions: DOXYcycline CAP(*) [DOXYcycline 100MG CAP(*)] 100 mg PO BID #10 cap Oseltamivir CAP* [Tamiflu CAP*] 75 mg PO BID #10 cap predniSONE 20 mg TAB [Deltasone 20 MG TAB*] 20 mg PO DAILY #11 tab Patient Education Materials: Asthma (ED), Influenza (ED), Pneumonia (ED) Referrals: Jamison López MD [Primary Care Provider] - Additional Instructions: Recommend starting Tamiflu, doxycycline, and prednisone as prescribed Recommend using Albuterol inhaler every 4 hours while sick and then continue duoneb ever 6 hours as needed Continue to drink plenty of fluids, rest and tylenol as needed for pain/fevers If you symptoms are not improving over the next 24 hours, I recommend you are re -evaluated by your PCP, urgent care or the ER If you are feeling worse, shortness of breath or chest pain, go to the ER - Billing Disposition and Condition Condition: FAIR Disposition: Home
== END 2020-02-04 19:48 | disposition home or self-care (01) ==
LOC: UCEAST 18:37
DX: J10.1 Influenza due to other identified influenza virus with other respiratory manifestations (principal); J45.909 Unspecified asthma, uncomplicated; J18.9 Pneumonia, unspecified organism; I10 Essential (primary) hypertension; Z88.0 Allergy status to penicillin; Z91.040 Latex allergy status; Z91.09 Other allergy status, other than to drugs and biological substances; Z88.8 Allergy status to other drugs, medicaments and biological substances; Z79.51 Long term (current) use of inhaled steroids; Z79.899 Other long term (current) drug therapy
CPT/HCPCS: 71046; 99212; G0463

== ENCOUNTER 2024-12-30 14:51 | Inpatient (IN) ==
[2024-12-30 16:31] LABS: Activated Partial Thrombo Time 27.2 seconds (26.0-38.0); INR 1.31 (0.85-1.14)
[2024-12-30] MEDS: Lactated Ringers 1000 ml BAG 1,000 ML IV ONE (16:44)
[2024-12-30 16:55] LABS: Albumin 4.1 g/dL (3.5-5.7); Albumin/Globulin Ratio 1.6 (1-3); C Reactive Protein 223.69 mg/L (<8.01); Calcium 9.5 mg/dL (8.6-10.3); Creatinine, Serum 0.78 mg/dL (0.51-0.95); Globulin 2.5 g/dL (2-4); Magnesium 1.7 mg/dL (1.9-2.7); Potassium 3.4 mmol/L (3.5-5.0); Total Bilirubin 0.6 mg/dL (0.2-1.0); Total Protein 6.6 g/dL (6.4-8.9); eGFR CKD-EPI 78.7 (>60)
[2024-12-30 17:17] LABS: ABS Basophils 0.1 10^3/uL (0.0-0.1); ABS Lymphocytes 0.3 10^3/uL (1.0-4.8); ABS Monocytes 0.7 10^3/uL (0.0-0.9); ABS Neutrophils 24.6 10^3/uL (1.5-7.6); Hematocrit 39.6 % (35-45); Hemoglobin 13.2 g/dL (11.5-14.3); Lymphocyte % 1.1 %; Mean Corpuscular Hemoglobin 30.5 pg (27-33); Mean Corpuscular Hgb Conc 33.2 g/dL (31-36); Mean Corpuscular Volume 91.8 fL (80-97); Mean Platelet Volume 6.8 fL (7.5-11.2); Platelet Count 256 10^3/uL (150-450); Red Blood Count 4.32 10^6/uL (3.63-4.92); Red Cell Distribution Width 13.5 % (12-17); White Blood Count 25.7 10^3/uL (3.8-11.8)
[2024-12-30] MEDS: Albuterol HFA INHALER 8 gm MDI INH ONE ×2 (17:40→20:20)
[2024-12-30] MEDS: Magnesium Sulfate 2 gm BAG 2 GM/50 ML BAG IVPB ONE (17:40)
[2024-12-30 17:56] LABS: High Sensitivity Troponin 1 Hr 30 pg/mL (<15)
[2024-12-30] MEDS: methylPREDNISolone SOD SUCC 125 mg 2 ML VIAL IV ONE (19:14)
[2024-12-30] MEDS: cefTRIAXone 1 gm/50 mL D5W 1 GM/50 ML BAG IV ONE (19:14)
[2024-12-30 19:45] LABS: Phosphorus 2.1 mg/dL (2.5-5.0)
[2024-12-30] MEDS: Azithromycin 500 mg/250 ml NS 500 MG/250 ML BAG IVPB ONE (20:19)
[2024-12-30] MEDS ORDERED: Albuterol HFA INHALER 8 gm MDI INH PRN (20:58)
[2024-12-30 21:51] LABS: Urine Appearance Turbid; Urine Bilirubin Negative (Negative); Urine Blood 1+ (Negative); Urine Color Yellow; Urine Glucose Trace (Negative); Urine Ketones Trace (Negative); Urine Nitrite Negative (Negative); Urine Protein 2+ (>=100 mg/dL) (Negative); Urine Specific Gravity 1.033 (1.002-1.030); Urine Urobilinogen Negative (Negative)
[2024-12-30 21:56] LABS: Urine Bacteria Absent /HPF (Absent); Urine Red Blood Cell 2+(6-10/hpf) /HPF (0-Trace); Urine Squamous Epithelial Cell Present /HPF (Absent); Urine White Blood Cell 2+(11-20/hpf) /HPF (0-Trace)
[2024-12-30] MEDS: Magnesium Sulfate IV 1GM/100ML 1 GM/100 ML BAG IV ONE (22:27)
[2024-12-30] MEDS: Potassium Chlor 20 meq TAB.ER PO ONE (22:27)
[2024-12-30] MEDS: Furosemide 20 mg/2 ml IV VIAL IV SLOW PU ONE (22:27)
[2024-12-30] MEDS: Sodium Phosphate IV 15 MMOL in NS 0.9% 250 ml 250 ML IV ONE (23:23)
[2024-12-30] MEDS: SPIRIVA Respimat (tiotropium) 2.5 mcg/inh Inhaler INH SCH (23:29)
[2024-12-30] MEDS: Mometasone/Formoter 200/5 MDI INH SCH (23:29)
[2024-12-31] MEDS ORDERED: Albuterol HFA INHALER 8 gm MDI INH SCH
[2024-12-31] MEDS: Albuterol HFA INHALER 8 gm MDI INH SCH (02:50)
[2024-12-31] MEDS: Enoxaparin 40 MG/0.4 ML SYR SUBCUT SCH (05:48)
[2024-12-31] MEDS: Benzocaine/Menthol LOZ PO PRN (06:28)
[2024-12-31 07:08] LABS: Hematocrit 35.3 % (35-45); Hemoglobin 12.2 g/dL (11.5-14.3); Mean Corpuscular Hemoglobin 31.4 pg (27-33); Mean Corpuscular Hgb Conc 34.5 g/dL (31-36); Mean Corpuscular Volume 90.9 fL (80-97); Mean Platelet Volume 6.8 fL (7.5-11.2); Platelet Count 225 10^3/uL (150-450); Red Blood Count 3.89 10^6/uL (3.63-4.92); Red Cell Distribution Width 13.6 % (12-17); White Blood Count 25.4 10^3/uL (3.8-11.8)
[2024-12-31 07:32] LABS: Calcium 8.8 mg/dL (8.6-10.3); Creatinine, Serum 0.71 mg/dL (0.51-0.95); Magnesium 2.2 mg/dL (1.9-2.7); Phosphorus 2.8 mg/dL (2.5-5.0); Potassium 3.3 mmol/L (3.5-5.0); eGFR CKD-EPI 88.1 (>60)
[2024-12-31 08:31] LABS: ABS Eosinophils 0.1 10^3/uL (0.0-0.5); ABS Lymphocytes 0.4 10^3/uL (1.0-4.8); ABS Monocytes 0.3 10^3/uL (0.0-0.9); ABS Neutrophils 24.7 10^3/uL (1.5-7.6); Eosinophil % 0.2 %; Lymphocyte % 1.6 %; RBC Morphology Normal (Normal)
[2024-12-31] MEDS: Furosemide 20 mg/2 ml IV VIAL IV SLOW PU ONE (11:51)
[2024-12-31] MEDS: Potassium Chlor 20 meq TAB.ER PO ONE (11:54)
[2024-12-31] MEDS: Multivitamins/Minerals TAB PO SCH (11:55)
[2024-12-31] MEDS: Calcium/Vitamin D TAB 250/125 TAB PO SCH (11:56)
[2024-12-31] MEDS: Iohexol 300 (CONTRAST) 10 ML SDV IV ONE (13:52)
[2024-12-31] MEDS: Sulfur Hexaflouride MICROSPHR 25 MG VIAL IV PRN (15:38)
[2024-12-31] MEDS: cefTRIAXone 1 gm/50 mL D5W 1 GM/50 ML BAG IV SCH (18:04)
[2024-12-31] MEDS: Albuterol 2.5mg/3 ml (0.083%) NEB.SOLN INH SCH (19:55)
[2024-12-31] MEDS: Azithromycin 500 mg/250 ml NS 500 MG/250 ML BAG IVPB SCH (20:02)
[2025-01-01 06:49] LABS: Hematocrit 36.4 % (35-45); Hemoglobin 12.5 g/dL (11.5-14.3); Mean Corpuscular Hemoglobin 31.4 pg (27-33); Mean Corpuscular Hgb Conc 34.3 g/dL (31-36); Mean Corpuscular Volume 91.5 fL (80-97); Mean Platelet Volume 6.8 fL (7.5-11.2); Platelet Count 239 10^3/uL (150-450); Red Blood Count 3.98 10^6/uL (3.63-4.92); Red Cell Distribution Width 13.6 % (12-17); White Blood Count 26.9 10^3/uL (3.8-11.8)
[2025-01-01 06:52] LABS: ABS Basophils 0.1 10^3/uL (0.0-0.1); ABS Lymphocytes 0.7 10^3/uL (1.0-4.8); ABS Monocytes 0.7 10^3/uL (0.0-0.9); ABS Neutrophils 25.3 10^3/uL (1.5-7.6); Lymphocyte % 2.7 %
[2025-01-01 07:12] LABS: Calcium 9.1 mg/dL (8.6-10.3); Creatinine, Serum 0.61 mg/dL (0.51-0.95); Magnesium 2.3 mg/dL (1.9-2.7); Potassium 4.2 mmol/L (3.5-5.0); eGFR CKD-EPI 92.6 (>60)
[2025-01-01] MEDS: Furosemide 20 mg/2 ml IV VIAL IV SLOW PU ONE (13:18)
[2025-01-02 11:52] LABS: Hematocrit 35.5 % (35-45); Hemoglobin 11.9 g/dL (11.5-14.3); Mean Corpuscular Hemoglobin 30.6 pg (27-33); Mean Corpuscular Hgb Conc 33.6 g/dL (31-36); Mean Corpuscular Volume 91.2 fL (80-97); Mean Platelet Volume 6.6 fL (7.5-11.2); Platelet Count 300 10^3/uL (150-450); White Blood Count 16.3 10^3/uL (3.8-11.8)
[2025-01-02 12:25] LABS: ABS Basophils 0.1 10^3/uL (0.0-0.1); ABS Lymphocytes 1.3 10^3/uL (1.0-4.8); ABS Monocytes 1.5 10^3/uL (0.0-0.9); ABS Neutrophils 13.4 10^3/uL (1.5-7.6); Eosinophil % 0.3 %; Lymphocyte % 7.8 %
[2025-01-02 12:29] LABS: Calcium 9.7 mg/dL (8.6-10.3); Creatinine, Serum 0.62 mg/dL (0.51-0.95); eGFR CKD-EPI 92.2 (>60)
[2025-01-02 18:00] VITALS: BP 126/65
== END 2025-01-02 18:31 | disposition home or self-care (01) | DRG 189 ==
LOC: ED 14:51 → EDHOLD 14:51 → SUATTDRO 19:18 → MED 12-31 01:42
PROVIDERS: ADMIT Student in an Organized Health Care Education/Training Program; ATTEND Internal Medicine